=== PATIENT | female | born 1950 | race Caucasian/White ===

== ENCOUNTER → 2022-08-26 | Outpatient (CLI) | payer OTHER ==
[2022-08-26 16:33] LABS: Source, Urine Clean Catch
[2022-08-26 16:45] LABS: Bacteria Not Seen /hpf; Red Blood Cells, Urine 0-2 /hpf (0-2); Squamous Epithelial Cells Few /hpf (Few); White Blood Cells, Urine 0-2 /hpf (0-5)
== END | disposition home or self-care (01) ==
LOC: LAB SHORT 16:31 → LAB 16:31
PROVIDERS: Emergency Medicine
DX: N39.0 Urinary tract infection, site not specified (principal)
CPT/HCPCS: 81015

== ENCOUNTER → 2022-10-07 | Outpatient (CLI) | payer OTHER ==
[2022-10-07 13:36] LABS: Source, Urine Voided
[2022-10-07 14:48] LABS: Bacteria Rare /hpf; Squamous Epithelial Cells Not Seen /hpf (Few); White Blood Cells, Urine 0-2 /hpf (0-5)
== END | disposition home or self-care (01) ==
LOC: LAB SHORT 10:30 → LAB 10:30
PROVIDERS: Physician Assistant
DX: R31.9 Hematuria, unspecified (principal)
CPT/HCPCS: 81015; 87086

== ENCOUNTER → 2023-05-14 | Outpatient (CLI) | payer OTHER | END | disposition home or self-care (01) | LOC: LAB SHORT 14:15 → LAB 14:15 | DX: N39.0 Urinary tract infection, site not specified (principal) | CPT/HCPCS: 87077; 87086; 87186 ==

== ENCOUNTER 2023-07-05 23:14 | Observation (INO) | payer OTHER ==
[~2023-07-05] VITALS: Ht 162.6 cm; Wt 56.6 kg
[2023-07-05 23:45] LABS: BASOPHILS ABSOLUTE AUTO 0.05 K/mm3 (0.00-0.23); BASOPHILS PERCENT AUTO 0 % (0-2); EOSINOPHILS ABSOLUTE AUTO 0.07 K/mm3 (0.00-0.68); EOSINOPHILS PERCENT AUTO 1 % (0-6); Hematocrit 41.6 % (33.0-51.0); Hemoglobin 14.3 g/dL (11.5-16.0); IMMATURE GRAN ABSOLUTE AUTO 0.03 K/mm3 (0.00-0.10); IMMATURE GRAN PERCENT AUTO 0 % (0-1); LYMPHOCYTES ABSOLUTE AUTO 3.56 K/mm3 (0.84-5.20); LYMPHOCYTES PERCENT AUTO 32 % (21-46); MONOCYTES ABSOLUTE AUTO 0.51 K/mm3 (0.16-1.47); MONOCYTES PERCENT AUTO 5 % (4-13); Mean Corpuscular HGB 29.9 pg (26.0-34.0); Mean Corpuscular HGB Conc 34.4 g/dL (31.5-36.5); Mean Corpuscular Volume 87 fL (80-100); NEUTROPHILS ABSOLUTE AUTO 6.91 K/mm3 (1.96-9.15); NEUTROPHILS PERCENT AUTO 62 % (41-73); Platelet Count 243 K/mm3 (150-400); RDW Coefficient Variation 12.1 % (11.7-14.2); RDW Standard Deviation 38.9 fL (35.1-46.3); Red Blood Cell Count 4.78 M/mm3 (3.80-5.20); White Blood Cell Count 11.13 K/mm3 (4.00-11.30)
[2023-07-06 00:05] LABS: Albumin, Blood 4.1 g/dL (3.4-5.0); Albumin/Globulin Ratio 1.2 (0.8-1.8); Bilirubin, Total 0.3 mg/dL (0.1-1.0); Bun/Creatinine Ratio 30.3 (12.0-20.0); Calcium, Blood 9.9 mg/dL (8.5-10.1); Creatinine, Blood 0.73 mg/dL (0.40-1.00); Globulin, Blood 3.3 g/dL (2.2-4.0); Potassium, Blood 3.9 mmol/L (3.5-5.5); Total Protein, Blood 7.4 g/dL (6.4-8.2)
[2023-07-06 01:06] LABS: Source, Urine Clean Catch
[2023-07-06 01:16] LABS: Bilirubin, Urine Neg (Neg); Blood, Urine Neg (Neg); Glucose Qualitative, Urine Neg (Neg); Ketones, Urine 3+ (Neg); Leukocyte Esterase, Urine 1+ (Neg); Nitrite, Urine Neg (Neg); Protein, Urine 2+ (Neg); Urobilinogen, Urine NORM (Normal)
[2023-07-06 01:23] LABS: Appearance, Urine Clear (Clear); Color, Urine Yellow (P-Yellow)
[2023-07-06 01:24] LABS: Amorphous Light (0-Heavy); Bacteria Rare /hpf; Mucus Light (0-Heavy); Red Blood Cells, Urine 0-2 /hpf (0-2); Squamous Epithelial Cells Not Seen /hpf (Few)
[2023-07-06] MEDS ORDERED: Simvastatin20 MG PO (01:48)
[2023-07-06] MEDS ORDERED: ALEN10 (01:49)
[2023-07-06] MEDS ORDERED: ALEN10 PO (03:24)
--- NOTE | 2023-07-06 03:55 | NUR ---
NEW ADMIT. PATIENT ARRIVED TO ROOM 324 VIA WHEEL CHAIR AND ONE PERSON TRANSFER. PATIENT INDEPENDENTLY TRANSFERED SELF TO BED FROM WHEELCHAIR.
[2023-07-06 04:00] VITALS: BP 137/83
[2023-07-06 07:28] LABS: BASOPHILS ABSOLUTE AUTO 0.02 K/mm3 (0.00-0.23); BASOPHILS PERCENT AUTO 0 % (0-2); EOSINOPHILS ABSOLUTE AUTO 0.01 K/mm3 (0.00-0.68); EOSINOPHILS PERCENT AUTO 0 % (0-6); Hematocrit 38.4 % (33.0-51.0); Hemoglobin 12.9 g/dL (11.5-16.0); IMMATURE GRAN ABSOLUTE AUTO 0.01 K/mm3 (0.00-0.10); IMMATURE GRAN PERCENT AUTO 0 % (0-1); LYMPHOCYTES ABSOLUTE AUTO 1.89 K/mm3 (0.84-5.20); LYMPHOCYTES PERCENT AUTO 27 % (21-46); MONOCYTES ABSOLUTE AUTO 0.35 K/mm3 (0.16-1.47); MONOCYTES PERCENT AUTO 5 % (4-13); Mean Corpuscular HGB 29.9 pg (26.0-34.0); Mean Corpuscular HGB Conc 33.6 g/dL (31.5-36.5); Mean Corpuscular Volume 89 fL (80-100); Mean Platelet Volume 9.9 fL (9.1-12.4); NEUTROPHILS ABSOLUTE AUTO 4.76 K/mm3 (1.96-9.15); NEUTROPHILS PERCENT AUTO 68 % (41-73); Platelet Count 191 K/mm3 (150-400); RDW Coefficient Variation 12.2 % (11.7-14.2); RDW Standard Deviation 39.9 fL (35.1-46.3); Red Blood Cell Count 4.31 M/mm3 (3.80-5.20); White Blood Cell Count 7.04 K/mm3 (4.00-11.30)
--- NOTE | 2023-07-06 07:33 | NUR ---
SHIFT SUMMARY. PATIENT IS ALERT AND ORIENTED X4. PATIENT IS INDEPENDENT IN ROOM. PATIENT IS PLEASANT AND COOPERATIVE WITH CARE. PATIENT REPORTS SHE HAS PASSED GAS THIS MORNING WHEN SHE USED THE BATHROOM. PATIENT REPORTS FEELING MUCH BETTER THAN WHEN SHE CAME INTO THE EMERGENCY ROOM.BED IS LOCKED IN THE LOWEST POSITION WITH CALL LIGHT IN REACH. NO S/S OF DISTRESS NOTED AT THIS TIME.
[2023-07-06 07:53] VITALS: BP 147/65
[2023-07-06 07:54] LABS: Albumin, Blood 3.7 g/dL (3.4-5.0); Albumin/Globulin Ratio 1.2 (0.8-1.8); Bilirubin, Total 0.3 mg/dL (0.1-1.0); Bun/Creatinine Ratio 30.5 (12.0-20.0); Calcium, Blood 8.7 mg/dL (8.5-10.1); Creatinine, Blood 0.66 mg/dL (0.40-1.00); Potassium, Blood 4.1 mmol/L (3.5-5.5); Total Protein, Blood 6.7 g/dL (6.4-8.2)
--- NOTE | 2023-07-06 15:34 | NUR ---
PATIENT D/C'D TO HOME. DC INSTRUCTIONS AND EDUCATION DISCUSSED WITH PATIENT AND COPY PROVIDED. NO NEW RX MEDICATIONS. PATIENT DENIES ANY FURTHER QUESTIONS OR CONCERNS. PATIENT TO FOLLOW UP WITH PCP IN 1 WEEK.
== END 2023-07-06 15:12 | disposition home or self-care (01) ==
LOC: ER 23:14 → MEDS 23:15 → ER 07-06 02:48 → SURS 07-06 02:48 → MEDS 07-06 03:38 → SURS 07-06 03:38 → MEDS 07-06 03:55
PROVIDERS: Student in an Organized Health Care Education/Training Program; ADMIT Internal Medicine
DX: K56.609 Unspecified intestinal obstruction, unspecified as to partial versus complete obstruction (principal); Z88.5 Allergy status to narcotic agent; Z88.2 Allergy status to sulfonamides
CPT/HCPCS: 36415; 74177; 80053; 81001; 83690; 83880; 85025; J1885; J2405; J7030

== ENCOUNTER → 2024-01-25 | Outpatient (CLI) | payer OTHER ==
[~2024-01-25] MED LIST: ALEN10; ALEN10 PO; Simvastatin20 MG PO
== END ==
LOC: LAB SHORT 17:03 → LAB 17:03
DX: N39.0 Urinary tract infection, site not specified (principal)
CPT/HCPCS: 87086

== ENCOUNTER → 2024-02-10 | Outpatient (CLI) | payer OTHER | LOC: LAB SHORT 19:22 → LAB 19:22 | DX: R30.0 Dysuria (principal) | CPT/HCPCS: 87077; 87086; 87186 ==